=== PATIENT | female | born 1980 ===

== ENCOUNTER 2019-06-19 12:40 | Outpatient (CLI) | payer BC, SELFPAY ==
--- NOTE | ~2019-06-19 | MR_ITS ---
EXAMINATION: MR brain/brain stem wo/w con EXAM DATE: 06/19/2019 13:30 INDICATION: Vertigo in April. Dizziness and giddiness. TECHNIQUE: Magnetic resonance imaging (MRI) of the brain/brain stem obtained without contrast. Sagit irving T1, axial diffusion, gradient echo (T2*), T1, T2, FLAIR sequences obtained. Patient was then inj ected with 10 cc intravenous Multihance contrast. Axial and coronal postcontrast T1 weighted sequence s obtained. Correlation is made to head CT 04/21/2019. FINDINGS: There are no areas of restricted diffusion to suggest acute infarction. There is no acute hemorrhage seen on the T2*, a hemosiderin sensitive sequence. No intraparenchymal brain mass. The ve ntricles are normal in size. There are no extra-axial collections. Flow voids are seen in the cereb ral arteries on the T2-weighted sequences consistent with their expected patency. The orbits are unr emarkable. Soft tissue is unremarkable. IMPRESSION: 1. Normal brain MRI examination. Reviewed, dictated and finalized at location A. AN NANNY
[2019-06-19 13:13] LABS: Blood Urea Nitrogen 5 mg/dL (8-26); Estimated Glomerular Filt Rate > 60
== END 2019-06-19 12:41 | disposition home or self-care (01) ==
LOC: ANHIMG 12:43
PROVIDERS: PCP Family Medicine; Visit Provider Nurse Practitioner Family
DX: R42 Dizziness and giddiness (principal)
CPT/HCPCS: 70553; A9577

== ENCOUNTER 2020-10-21 05:02 | Inpatient (IN) | payer BC, SELFPAY ==
[2020-10-21] VITALS (74 sets, daily range): BP systolic 82–137; BP diastolic 36–121; PULSE 59–196; RESP 16–18; TEMP 36.3–36.9; O2SAT 98–100; BMI 29.9
--- NOTE | 2020-10-21 05:18 | LDADM ---
This patient, Ziggy Hunter, was admitted to Labor/Delivery/Recovery 105 on 10/21/20 at 05:02. Plans for labor, pain management and were discussed with patient. Patient/family oriented to hospital policies and general routines including ID bracelet, bed and alarms, visiting hours, pain management, procedures, bathroom and other care routines, personal items, smoking policy, room service/diet and guest tray routines, security routines, and visiting hours. Patient/Family are encouraged to report perceived risks to care and to ask questions if they do not understand what they are told or what they should do. See OBIX for further documentation.
[2020-10-21 05:42] LABS: Basophils Absolute Auto 0.1 K/mm3 (0.0-0.1); Basophils Percent Auto 0.6 % (0.2-1.2); Eosinophils Absolute Auto 0.1 K/mm3 (0-0.3); Eosinophils Percent Auto 1.2 % (0-4.4); Hematocrit 32.3 % (37.0-47.0); Hemoglobin 10.5 g/dL (12.0-15.0); Immature Granulocyte Absolute 0.08 K/mm3 (0.00-0.031); Immature Granulocyte Percent A 0.9 % (0-0.5); Lymphocytes Percent Auto 24.4 % (18.3-44.2); Mean Corpuscular HGB Conc 32.5 g/dl (32-36); Mean Corpuscular Hemoglobin 28.5 pg (26-34); Mean Corpuscular Volume 87.5 fl (80-100); Mean Platelet Volume 10.6 fl (7.4-10.4); Monocytes Absolute Auto 0.7 K/mm3 (0.1-0.6); Monocytes Percent Auto 8.2 % (2.6-8.5); Neutrophils Absolute Auto 5.8 K/mm3 (1.3-6.7); Neutrophils Percent Auto 64.7 % (45.5-73.1); Platelet Count Result 133 k/mm3 (150-375); Red Blood Count 3.69 M/mm3 (4.2-5.4); Red Cell Distribution Width 12.9 % (11.5-14.5)
[2020-10-21] MEDS: LACTATED RINGERS 1,000 ML 125 ML IV CONT ×2 (05:52→09:31)
[2020-10-21] MEDS: OXYTOCIN 30 UNITS/NS 500 ML 30 UNITS/500 ML BAG IV CONT (05:52)
--- NOTE | 2020-10-21 07:23 | WPDOBADMIT ---
Obstetrics - Admit Note Admission Note: record reviewed. No pertinent additions to the history and/or any subsequent changes in the physical findings that are not consistent with the expected course of the were found. Additions to the history and/or subsequent changes in the physical findings follow. None. at 39 for IOL. h/o one abruption. Otherwise uncomplicated. FHT cat 1. irritability on toco. SVE /-3 AROM clear. Anticipate .
--- NOTE | 2020-10-21 07:44 | WPDANESEPP ---
Anes - Eval Pre Procedure Procedure: labor epidural Date/Time: 10/21/20 07:44 Pre Op Diagnosis: Induction of Labor Patient Data Age: 39 Gender: F Height: 1.6 m Weight: 76.8 kg Last Vital Signs Temp 36.3 C L 10/21/20 05:22 Pulse 77 10/21/20 07:30 Resp 18 10/21/20 05:22 BP 109/75 10/21/20 07:30 Allergies Allergy/AdvReac Type Severity Reaction Status Date / Time nitrofurantoin AdvReac Mild chest pain Verified 09/26/20 13:35 [From Macrobid] Home Medications Medication Instructions Recorded Confirmed Type vit 112-iron 3.33 2 tablet PO DAILY tablet 03/31/19 10/21/20 History mg-folate 0.33 [id number] chew tablet sertraline 12.5 mg PO DAILY 10/21/20 10/21/20 History Laboratory Tests 10/21/20 10/21/20 05:36 05:36 WBC 9.0 K/mm3 K/mm3 (4.5-10.0) RBC 3.69 M/mm3 L M/mm3 (4.2-5.4) Hgb 10.5 g/dL L D g/dL (12.0-15.0) Hct 32.3 % L % (37.0-47.0) MCV 87.5 fl fl (80-100) MCH 28.5 pg pg (26-34) MCHC 32.5 g/dl g/dl (32-36) RDW 12.9 % % (11.5-14.5) Plt Count 133 k/mm3 L k/mm3 (150-375) MPV 10.6 fl H fl (7.4-10.4) Immature Gran % (Auto) 0.9 % H % (0-0.5) Neut % (Auto) 64.7 % % (45.5-73.1) Lymph % (Auto) 24.4 % % (18.3-44.2) Luce % (Auto) 8.2 % % (2.6-8.5) Eos % (Auto) 1.2 % % (0-4.4) Baso % (Auto) 0.6 % % (0.2-1.2) Lymph # (Auto) 2.20 K/mm3 K/mm3 (0.9-3.2) Luce # (Auto) 0.7 K/mm3 H K/mm3 (0.1-0.6) Eos # (Auto) 0.1 K/mm3 K/mm3 (0-0.3) Baso # (Auto) 0.1 K/mm3 K/mm3 (0.0-0.1) Abs Immat Gran (auto) 0.08 K/mm3 H K/mm3 (0.00-0.031) Absolute Neuts (auto) 5.8 K/mm3 K/mm3 (1.3-6.7) Absolute Nucleated RBC 0.0 K/mm3 K/mm3 (0.0-0.012) Nucleated RBC % 0.0 % % (0.0-0.2) RPR Pending Patient hx anesthesia problems: none Family hx anesthesia problems: none PMFSH Past Medical History Medical History Depression Kidney stones Miscarriage Surgical History Surgical History History of dilatation and curettage History of pyloroplasty [place] teeth extracted Family History Family History Father A-fib History of heart valve replacement Sibling Jpzuh-Xqpfyjgxm-Dukit syndrome Social History Social History Social History: Smoking status: Never smoker Second hand tobacco smoke exposure: No Alcohol intake: never Substance use: never Substance use type: does not use Gender identity (if verbalized by the patient): Female Spiritual care concerns: No Exam Day of Procedure 10/21/20 07:44 Patient weight: overweight Heart: regular rate and rhythm Lungs: normal air movement Airway: Mallampati scale class II Neurological: alert and oriented
[2020-10-21 11:07] LABS: Rapid Plasma Reagin Non-Reactive (NonReactive)
--- NOTE | 2020-10-21 13:59 | PM.OBPRVD ---
OB - Delivery Note Procedure Delivery date: 10/21/20 events: Labor Induction Intrapartal events: None Induction method: AROM and per pitocin protocol Delivery monitor: external FHT and external uterine Route of delivery: Laceration Description: None Specimen: No Quantitative Blood Loss (ml): 350 Anesthesia type: Epidural Disposition: floor Narrative: With adequate expulsive efforts by the mother, the baby's head was delivered OA. The baby's anterior shoulder was delivered under the pubic symphysis without difficulty. The posterior shoulder and the rest of the baby delivered without difficulty. The infant was placed on the mothers chest and suctioned and stimulated. The cord was clamped and cut after 30 seconds. Mother and baby both stable. [place] Baby Date of : 10/21/20 Time of : 13:43 Weeks of gestation at delivery: 39 Infant gender: Male Weight (pounds): 6 Weight (ounces): 15 presentation: vertex Placenta delivery description: Spontaneous cord vessel description: 3 Vessels, Nuchal Cord and Delayed Cord Clamping score one minute: 8 score five minutes: 9
[2020-10-21] MEDS: OXYTOCIN 30 UNITS/NS 500 ML 30 UNITS/500 ML BAG 125 UNITS IV CONT (14:14)
[2020-10-21] MEDS: BENZOCAINE 20% AER SPR (*SP) 56 GM CAN 1 SPRAY TOPICAL (16:54)
[2020-10-21] MEDS: WITCH HAZEL 40 PADS 1 PAD TOPICAL (16:54)
--- NOTE | 2020-10-21 17:20 | PC.NURSE ---
PT arrived on unit via wheelchair accompanied by spouse and and taken to room 276. PT alert and awake and oriented to room and surrounding area. PT introductions made and plan of care discussed per post , pain management,breast feeding, daily care activities. PT and spouse both recipients of such instructions and no barriers to learning noted. PT will receive instructions and education through out this shift using one to one discussion, demonstration and mom baby care guide. Welcome pack reviewed and discussed and pt verbalized understanding of such care.
[2020-10-21] MEDS: IBUPROFEN 600 MG TABLET PO (23:58)
[2020-10-22 04:00] VITALS: BP 114/69; PULSE 77; RESP 16; TEMP 36.9; O2SAT 99
[2020-10-22 05:33] LABS: Hematocrit 28.8 % (37.0-47.0); Hemoglobin 9.6 g/dL (12.0-15.0)
[2020-10-22 09:00] VITALS: BP 112/79; PULSE 96; RESP 16; TEMP 37.1; O2SAT 100
--- NOTE | 2020-10-22 09:08 | WPDANLDPN2 ---
Anes-Prog Note L&D Date/Time: 10/22/20 09:08 Comfortable throughout: labor and delivery Neuraxial method: epidural Epidural/Spinal procedure site: clean & non-tender Neuro status: Neuro function grossly intact. Cardiovascular status: normal Respiratory status: normal Airway patency: baseline Mental status: baseline Post-Op hydration status: normal Vital Signs: Last Vital Signs Temp 36.9 C 10/22/20 04:00 Pulse 77 10/22/20 04:00 Resp 16 10/22/20 04:00 BP 114/69 10/22/20 04:00 Pulse Ox 99 10/22/20 04:00 Pain score (VAS): 0 I/O: Intake & Output 10/21/20 10/22/20 10/22/20 23:59 07:59 15:59 Intake Total 500 Output Total 90 Balance 410 Post-procedural complaints: none Patient feedback: Patient satisfied with anesthetic care.
--- NOTE | 2020-10-22 09:33 | P.PNOB_ITS ---
OB - PN: Subj Subjective Date/time seen: 10/22/20 09:33 Patient comments: no complaints baby status: doing well OB - PN: Obj Data Labs CBC & Chem 7: 10/22/20 04:07 Labs: Laboratory Results - last 24 hr 10/21/20 10/22/20 05:36 04:07 Hgb 9.6 L Hct 28.8 L RPR Non-reactive OB - PN A/P Plan day: 1 Plan: routine care and discharge home Time Spent With Patient Time: Total time spent is greater than 50% in coordination of care (as documented) at patient's floor/unit and/or counseling patient: Review of Systems Review of Systems: All systems reviewed & are unremarkable except as noted in HPI and below Exam Const: General: cooperative Nutritional Appearance: average body habitus Limitations: no limitations Psych: Affect: normal affect Attitude: cooperative Thought process: Normal thought process present Thought content: Yes Normal thought content present Insight: Good insight present (Psych) Judgement: Good judgement pr esent (Psych)
--- NOTE | 2020-10-22 09:34 | PM.OBDSVD ---
DS: Admitting Diagnosis Admitting Diagnosis Admitting Diagnosis: MYRA OB - DS: Summary OB Procedures : None OB Procedures Intrapartum: Spontaneous Vag Delivery OB Procedures: : None Time Spent with Patient Time attestation: Total time spent providing and/or coordinating discharge services: DS: Data Data Completed and Pending Labs on day of discharge: Labs from last 24 hours 10/22/20 10/21/20 04:07 05:36 Hgb 9.6 L Hct 28.8 L RPR Non-reactive Discharge Plan Discharge Attending physician on discharge: Shilpi Bajwa Discharging Clinician: Haydee Garnica Patient Disposition: Home, Self-Care Activity: pelvic rest Diet: regular Patient Instructions: Antibiotic Form Stand Alone Forms: General Discharge Information Follow-up/Referrals: Daniella Vargas MD [Physician] - 4 Weeks Discharge Medications: Continued PNV [id number] 3.33 mg iron- 0.33 mg tablet,chewable 2 tablet PO DAILY RF: 0 sertraline 25 mg tablet 12.5 mg PO DAILY RF: 0 Date of admission: 10/21/20 05:02 Primary Care Provider: Danielle Elias Admitting Provider: Daniella Vargas Attending physician on admission: Daniella Vargas Condition: Stable
[2020-10-22 12:30] VITALS: BP 109/72; PULSE 97; RESP 16; TEMP 37; O2SAT 100
[2020-10-22] MEDS: IBUPROFEN 600 MG TABLET PO (12:35)
[2020-10-22] MEDS: MULTIVIT/MIN/PREN/FOL AC/IRON TABLET 1 TAB PO (12:36)
[2020-10-22] MEDS: POLYSACCHARIDE IRON COMPLEX 150 MG CAPSULE PO (12:36)
[2020-10-22] MEDS: DOCUSATE SODIUM 100 MG CAPSULE PO (12:36)
--- NOTE | 2020-10-22 13:56 | PC.NURSE ---
Patient was given the opportunity to view the discharge video Mother & Baby Care, The First Two Weeks and to ask questions. Patient declined viewing the video and has been given the mother/baby guide for home reference.
[2020-10-25 09:37] VITALS: BP 110/74; PULSE 90; RESP 16; TEMP 36.5; O2SAT 99
== END 2020-10-22 16:03 | disposition home or self-care (01) | DRG 807 ==
LOC: ANHLDR 05:17 → ANHOB2 17:24
PROVIDERS: Admitting Provider Obstetrics & Gynecology; PCP Family Medicine; Visit Provider Obstetrics & Gynecology
DX: O69.81X0 Labor and delivery complicated by cord around neck, without compression, not applicable or unspecified (principal); Z37.0 Single live birth; Z3A.39 39 weeks gestation of pregnancy; O70.0 First degree perineal laceration during delivery; O99.344 Other mental disorders complicating childbirth; F32.9 Major depressive disorder, single episode, unspecified
CPT/HCPCS: 36415; 85014; 85018; 85025; 86592; 86850; 86900; 86901; A9270; J2590; J2795; J7120

== ENCOUNTER → 2021-05-15 13:05 | Outpatient (CLI) | payer BC, SELFPAY ==
--- NOTE | ~2021-05-15 | US_ITS ---
EXAMINATION: US renal BI DATE: 05/15/2021 13:50 INDICATION: UPJ obstruction at the left kidney TECHNIQUE: Multiple ultrasound grayscale images of the kidneys were obtained. COMPARISON: 02/04/2018 FINDINGS: The right kidney measures 8.7 x 4.4 x 5.5 cm. The left kidney measures 10.2 x 7.0 x 4.5 cm. The kidne ys demonstrate normal echogenicity. Interval decrease in degree of mild left hydronephrosis. There is no hydronephrosis right hydronephrosis. No stones identified. The bladder is normal with bilateral ureteral jets visualized in the bladder on color Doppler. IMPRESSION: 1. Decrease in degree of chronic mild left hydronephrosis Reviewed, dictated and finalized at location B. MECHANIC
== END ==
PROVIDERS: Visit Provider Nurse Practitioner Family
DX: N13.5 Crossing vessel and stricture of ureter without hydronephrosis (principal)
CPT/HCPCS: 76775

== ENCOUNTER → 2022-05-28 11:26 | Outpatient (CLI) | payer BC, SELFPAY ==
--- NOTE | ~2022-05-28 | XR_ITS ---
XR sacroiliac joints min 3V DATE: 05/28/2022 11:53 INDICATION: Pain TECHNIQUE: AP and bilateral oblique views of the sacroiliac joints COMPARISON: None FINDINGS: The sacroiliac joints are intact, without evidence of fracture, dislocation, erosive change or ankylosis. IMPRESSION: Negative Reviewed, dictated and finalized at Location A. Reviewed, dictated and finalized at location B. BOX OPERATOR IMPRESSION: Negative
--- NOTE | ~2022-05-28 | XR_ITS ---
XR hip RT min 2V DATE: 05/28/2022 11:53 INDICATION: Right hip pain TECHNIQUE: AP and lateral views COMPARISON: None FINDINGS: The pubic symphysis and right sacroiliac joint are intact. Right hip joint space is well pr eserved. No fracture or dislocation, avascular necrosis or bone destruction of the right hip. IMPRESSION: Negative Reviewed, dictated and finalized at location B. ONAL SECURITY SPECIALIST IMPRESSION: Negative
== END ==
PROVIDERS: PCP Family Medicine; Visit Provider Nurse Practitioner Gerontology
DX: M25.559 Pain in unspecified hip (principal)
CPT/HCPCS: 72202; 73502

== ENCOUNTER 2022-06-25 13:43 | Emergency (ER) | payer BC, SELFPAY ==
[2022-06-25 13:50] VITALS: BP 131/80; PULSE 104; RESP 16; TEMP 36.4; O2SAT 100
--- NOTE | 2022-06-25 15:01 | ED.URI ---
HPI - URI/Sore Throat General Chief Complaint: Upper Respiratory Infection Stated Complaint: Sore Throat Time Seen by Provider: 06/25/22 15:02 Source: patient, RN notes reviewed and old records reviewed Mode of arrival: ambulatory Limitations: no limitations History of Present Illness HPI Narrative: 41-year-old female presents to the [facility] with complaints of a sore throat since Saturday. Has taken Zyrtec and ibuprofen Related Data Home Medications Medication Instructions Recorded Confirmed norethindrone 1 mg-ethinyl 1 tablet PO DAILY 05/28/22 06/25/22 estradiol 20 mcg (21)-iron 75 mg (7) tablet (06/01 (28)) Allergies Allergy/AdvReac Type Severity Reaction Status Date / Time nitrofurantoin AdvReac Mild chest pain Verified 06/25/22 14:04 [From Macrobid] Review of Systems Review of Systems: All systems reviewed & are unremarkable except as noted in HPI and below Constitutional: Constitutional: Reports no additional constitutional complaints Eyes: Eyes: Reports no additional eye complaints ENT: Reports as per HPI and Reports sore throat Cardiovascular: Cardiovascular: Reports no additional cardiovascular complaints, Denies chest pain and Denies dyspnea Respiratory: Respiratory: Reports no additional respiratory complaints, Denies chest congestion, Denies cough and Denies dyspnea Gastrointestinal: Gastrointestinal: Reports no additional gastrointestinal complaints, Denies abdominal pain, Denies nausea and Denies vomiting Musculoskeletal: Musculoskeletal: Reports no additional musculoskeletal complaints Integumentary/Breasts: Skin/Breast: Reports system reviewed and no additional complaints, except as docu Neurologic: Reports system reviewed and no additional complaints, except as documented Psychiatric: Psychiatric: Reports no additional psychiatric complaints Allergic/Immunologic: Allergic/Immunologic: Reports no additional allergic/immunologic complaints [facility] Past Medical History Medical History Depression Kidney stones Miscarriage Surgical History Surgical History History of dilatation and curettage History of pyloroplasty [place] teeth extracted Family History Family History Father A-fib History of heart valve replacement Sibling Dbypb-Vfesmazfx-Gojvm syndrome Social History Social History (Reviewed 02/13/23 @ 20:19 by JIL Dennis Social History: Smoking status: Never smoker Second hand tobacco smoke exposure: No Alcohol intake: never Substance use: never Substance use type: does not use Living arrangements: with family Occupation/Education: occupation Gender identity (if verbalized by the patient): Female Spiritual care concerns: No Comments At the time of my signature, I reviewed and agree with the nursing past medical, surgical, social, and family history. There is no relevant family history pertinent to the patient complaint. Exam Const: General: cooperative, healthy appearing, comfortable, no acute distress, well developed, alert and well nourished Nutritional Appearance: well nourished Orientation/consciousness: patient oriented x3 Limitations: no limitations HENMT: Head: normal to inspection Ears: hearing grossly normal bilaterally and external ears normal Face/Nose/Sinus: Normal external nose present, Normal nares present, Normal nasal mucous membranes and turbinates present and normal facial exam Face and sinus: normal facial exam Mouth: Yes Normal oral and palatal mucosa present, Yes lip normal and Yes moist mucous membranes Throat: posterior oropharynx normal, uvula midline and abnormal tonsil bilateral erythema, exudates and hypertrophy Eyes: General: appearance normal, both eyes and all related structures Alignment and Position: alignment keena
== END 2022-06-25 15:15 | disposition home or self-care (01) ==
PROVIDERS: Emergency Provider Nurse Practitioner; PCP Family Medicine
DX: J02.0 Streptococcal pharyngitis (principal)
CPT/HCPCS: 87880; 99213; G0463

== ENCOUNTER → 2022-06-26 16:47 | Outpatient (CLI) | payer BC, SELFPAY ==
--- NOTE | ~2022-06-26 | MM_ITS ---
EXAMINATION: MM screening dimple BI w abby HISTORY: Screening mammogram TECHNIQUE: Craniocaudal and mediolateral oblique 3-D tomosynthesis images were obtained and synthetic 2-D images were generated. CAD analysis was submitted and interpreted. COMPARISON: No prior mammogram is available for comparison at this institution. BREAST PARENCHYMAL COMPOSITION: The breasts are heterogeneously dense, which may obscure small masses . FINDINGS: There is no evidence of suspicious mass, calcification, or architectural distortion to sugg est malignancy in either breast. There has been no suspicious interval change. IMPRESSION: 1. No mammographic evidence of malignancy. 2. Recommend routine screening mammography in one year. BI-RADS Category 1: Negative Reviewed, dictated and finalized at location A. LINE CONSTRUCTION INSPECTOR
== END ==
PROVIDERS: PCP Family Medicine; Visit Provider Obstetrics & Gynecology
DX: Z12.31 Encounter for screening mammogram for malignant neoplasm of breast (principal)
CPT/HCPCS: 77063; 77067

== ENCOUNTER → 2022-08-28 12:00 | Outpatient (CLI) | payer BC, SELFPAY ==
--- NOTE | ~2022-08-28 | US_ITS ---
Corrected Report Correction to Ordering Provider 08/29/2022 [facility] This report was recreated on 08/29/2022. Original report was signed by Frantz Soria M.D. on 08/28/2022 14:18 CDT. US renal BI 08/28/2022 12:51 Procedure: Realtime transabdominal ultrasound of the kidneys and bladder. Indication: History of UPJ obstruction Comparison: Ultrasound dated 05/15/[address] dated 06/05/2018 Findings: Renal echotexture is normal bilaterally without contour deforming mass or renal calculus. There is mild right hydronephrosis. The right kidney measures 9.6 cm and left kidney measures 10.5 cm. Bladder within normal limits. Impression: 1: Mild right hydronephrosis. Reviewed, dictated and finalized at location A. MTDD Impression: 1: Mild right hydronephrosis.
== END ==
PROVIDERS: PCP Family Medicine
DX: N13.30 Unspecified hydronephrosis (principal)
CPT/HCPCS: 76775

== ENCOUNTER → 2022-08-28 12:05 | Outpatient (CLI) | payer BC, SELFPAY ==
--- NOTE | ~2022-08-28 | MR_ITS ---
MRI of the lumbar spine Clinical History: Right leg pain Technique: Axial T2-weighted images, and sagittal T1-weighted, T2-weighted, and T2 fat-sat images wer e acquired. Findings: There is no fracture or subluxation of the lumbar spine. Vertebral bodies maintain normal h eight and alignment. No focal bone marrow signal reality seen. Mild facet joint degenerative changes are present in the lumbar spine. No disc bulge or herniation se en at any level. No spinal canal stenosis or neural foraminal narrowing. No epidural mass or collecti on. Paravertebral soft tissues are unremarkable. Impression: Minimal facet joint degenerative changes. Reviewed, dictated and finalized at location . Impression: Minimal facet joint degenerative changes.
== END ==
PROVIDERS: PCP Family Medicine; Visit Provider Orthopaedic Surgery
DX: M54.16 Radiculopathy, lumbar region (principal); M79.604 Pain in right leg
CPT/HCPCS: 72148

== ENCOUNTER → 2022-09-11 14:26 | Outpatient (CLI) | payer BC, SELFPAY ==
--- NOTE | ~2022-09-11 | MR_ITS ---
MRI of the right hip Clinical history: Pain Technique: Coronal T1-weighted, T2-weighted, and proton-density fat-sat images, and axial T1-weighted and proton-density fat-sat images were acquired through the pelvis. Coronal T2-weighted images and c oronal, axial, and sagittal proton-density fat-sat images were acquired through the right hip. Findings: There is no fracture, avascular necrosis, or transient osteoporosis of either hip. There is minimal focal marrow edema at the greater trochanter of the proximal right femur. Otherwise, bone ma rrow signals in the proximal femora and visualized pelvic bones are unremarkable. Bilateral hip joint spaces are preserved, possible minimal chondral thinning. No joint effusion evident. No right acetab ular labral tear identified. There is peritendinitis edema at the insertion of the right gluteus minimus tendon at the greater tro chanter, probable minimal fraying of the distal gluteus minimus tendon itself. No jim bursitis iden tified. Remaining muscle signals are unremarkable. Remaining tendons are unremarkable. No soft tissue mass or fluid collection seen. IMPRESSION: Peritendinous edema about the insertion of the right gluteus minimus tendon at the greater trochanter with probable minimal fraying of the tendon itself. Associated minimal reactive marrow edema at the greater trochanter of the proximal right femur. No other significant findings. Reviewed, dictated and finalized at [facility]. IMPRESSION: Peritendinous edema about the insertion of the right gluteus minimus tendon at the greater trochanter with probable minimal fraying of the tendon itself. Asso ciated minimal reactive marrow edema at the greater trochanter of the proximal right femur. No other significant findings.
== END ==
PROVIDERS: PCP Orthopaedic Surgery; Visit Provider Orthopaedic Surgery
DX: M25.551 Pain in right hip (principal)
CPT/HCPCS: 73721

== ENCOUNTER 2023-07-23 15:48 | Outpatient (CLI) | payer BC, SELFPAY ==
--- NOTE | ~2023-07-23 | MM_ITS ---
EXAMINATION: MM screening dimple BI w abby HISTORY: Screening mammogram TECHNIQUE: Craniocaudal and mediolateral oblique 3-D tomosynthesis images were obtained and synthetic 2-D images were generated. CAD analysis was submitted and interpreted. COMPARISON: June 26, 2022 bilateral screening mammogram examination BREAST PARENCHYMAL COMPOSITION: The breasts are heterogeneously dense, which may obscure small masses . FINDINGS: There is no evidence of suspicious mass, calcification, or architectural distortion to sugg est malignancy in either breast. There has been no suspicious interval change. IMPRESSION: 1. No mammographic evidence of malignancy. 2. Recommend routine screening mammography in one year. BI-RADS Category 1: Negative Reviewed, dictated and finalized at location A.
== END 2023-07-23 15:49 ==
LOC: MICIMG 15:49
PROVIDERS: PCP Nurse Practitioner; Visit Provider Nurse Practitioner
DX: Z12.31 Encounter for screening mammogram for malignant neoplasm of breast (principal)
CPT/HCPCS: 77063; 77067

== ENCOUNTER 2023-08-27 12:10 | Outpatient (CLI) | payer BC, SELFPAY ==
--- NOTE | ~2023-08-27 | US_ITS ---
EXAMINATION: US renal BI DATE: 08/27/2023 12:32 INDICATION: Left hydronephrosis TECHNIQUE: Multiple ultrasound grayscale images of the kidneys were obtained. COMPARISON: None available for comparison FINDINGS: The right kidney measures 10.6 x 4.0 x 4.8 cm. The left kidney measures 9.8 x 5.6 x 4.6 cm. The kidne ys demonstrate normal echogenicity. There is mild left hydronephrosis which has been discussed on kay or studies dated 08/18/2022 and 05/15/2021, images of which are unavailable for direct comparison. There is no right hydronephrosis. No stones identified. The bladder is normal. There is a dilated fluid-fi lled loop of small bowel anterior to the left kidney. IMPRESSION: 1. Chronic mild left hydronephrosis.. Otherwise normal kidneys. 2. Fluid-filled loop of bowel in the left abdomen which appears to represent a dilated segment of sma ll bowel raising suspicion for either ileus or obstruction. Alternatively this could represent the co keren in the setting of diarrhea. Reviewed, dictated and finalized at location A. IMPRESSION: 1. Chronic mild left hydronephrosis.. Otherwise normal kidneys. 2. Fluid-filled loop of bowel in the left abdomen which appears to represent a dilated segment of small bowel raising suspicion for either ileus or obstructio n. Alternatively this could represent the colon in the setting of diarrhea.
== END 2023-08-27 12:11 ==
LOC: MICIMG 12:11
DX: N13.39 Other hydronephrosis (principal)
CPT/HCPCS: 76775

== ENCOUNTER 2023-09-23 11:50 | Outpatient (CLI) | payer BC, SELFPAY ==
--- NOTE | ~2023-09-23 | CT_ITS ---
Non-contrast CT scan of the Abdomen and Pelvis Clinical indication: Abdominal pain Technique: 2.5 mm axial scans were obtained through the abdomen and pelvis without intravenous or or al contrast. Dose reduction technique was used on this scan by utilizing automated exposure control a nd iterative reconstruction technique. The dose-length product (DLP) was 524.19 mGy-cm. Findings: Images through the lung bases reveal no abnormalities. 2 mm nonobstructing left renal stone present. No right renal stone. No ureteral stone or hydronephros is on either side. The liver, spleen, pancreas, gallbladder, and adrenals appear normal. There is no aortic aneurysm. There is no evidence of bowel obstruction. Images through the pelvis were performed. There is no evidence of ascites or lymphadenopathy. Urinary bladder unremarkable. No pelvic mass seen. Impression: 2 mm nonobstructing left renal stone. Reviewed, dictated and finalized at [facility]. Impression: 2 mm nonobstructing left renal stone.
== END 2023-09-23 11:51 ==
LOC: MICIMG 11:51
PROVIDERS: PCP Family Medicine; Visit Provider Physician Assistant
DX: R10.9 Unspecified abdominal pain (principal); R93.89 Abnormal findings on diagnostic imaging of other specified body structures; N20.0 Calculus of kidney
CPT/HCPCS: 74176

== ENCOUNTER 2024-09-24 13:32 | Outpatient (CLI) | payer BC, SELFPAY ==
--- NOTE | ~2024-09-24 | MM_ITS ---
EXAMINATION: MM screening dimple BI w abby HISTORY: Screening TECHNIQUE: Craniocaudal and mediolateral oblique 3-D tomosynthesis images were obtained and synthetic 2-D images were generated. CAD analysis was submitted and interpreted. COMPARISON: Comparison to multiple prior studies sequentially, with oldest reviewed study dated 06/26. BREAST PARENCHYMAL COMPOSITION: Not dense: There are scattered areas of fibroglandular density. FINDINGS: There is no evidence of suspicious mass, calcification, or architectural distortion to sugg est malignancy in either breast. There has been no suspicious interval change. IMPRESSION: 1. No mammographic evidence of malignancy. 2. Recommend routine screening mammography in one year. BI-RADS Category 1: Negative Reviewed, dictated and finalized at location A.
== END 2024-09-24 13:33 | disposition home or self-care (01) ==
LOC: MICIMG 13:32
PROVIDERS: PCP Family Medicine; Visit Provider Family Medicine
DX: Z12.31 Encounter for screening mammogram for malignant neoplasm of breast (principal)
CPT/HCPCS: 77063; 77067